=== PATIENT | female | born 1990 | race Asian ===

== ENCOUNTER 2020-02-29 08:15 | Outpatient (CLI) | payer OTHER ==
[2020-02-29 17:56] LABS: SARS-CoV-2 MS2 Positive; SARS-CoV-2 N Gene Positive; SARS-CoV-2 S Gene Positive; SARS-CoV-2 by NAA DETECTED (NotDetected); SARS-CoV-2 orf1ab Positive
== END 2020-02-29 08:16 | disposition home or self-care (01) ==
LOC: LABBT 08:15
PROVIDERS: ATTEND Advanced Practice Midwife
DX: U07.1 COVID-19 (principal)
CPT/HCPCS: 87635; U0003

== ENCOUNTER 2020-03-02 13:24 | Day surgery (SDC) | payer OTHER ==
[~2020-03-02 13:24] MED LIST: hydrALAZINE 20 MG/ML VIAL SLOW IVP PRN
[2020-03-02 13:27] VITALS: BMI 36.7
[2020-03-02] MEDS ORDERED: FLU VACC QS2020-21(6MOS UP)/PF 60 MCG/0.5 ML SYRINGE IM ONE (14:00)
--- NOTE | 2020-03-02 15:23 | ULT ---
ULTRASOUND BIOPHYSICAL PROFILE: Date: 03/02/2020 HISTORY: 29-year-old COVID-positive female in third trimester of . FINDINGS: breathin tone: 2 movement: 2 Amniotic fluid volume: 2 NATY: 16.5 cm. heart rate: 144 bpm. lie: Cephalic. Placenta: Anterior. No placenta previa. Maternal cervix: Obscured. IMPRESSION: Normal biophysical profile score of 8/8, excluding the non-stress test. jn [] POS: [facility]
== END 2020-03-02 14:25 ==
LOC: L&D/OP 13:24
PROVIDERS: ATTEND Advanced Practice Midwife
DX: O98.513 Other viral diseases complicating pregnancy, third trimester (principal); U07.1 COVID-19; Z3A.00 Weeks of gestation of pregnancy not specified
CPT/HCPCS: 36416; 76819

== ENCOUNTER 2020-03-07 13:35 | Day surgery (SDC) | payer OTHER ==
[2020-03-07 13:37] VITALS: BP 113/73; TEMP 98.9
[2020-03-07 13:40] VITALS: BMI 36.7
--- NOTE | 2020-03-07 16:08 | ULT ---
ULTRASOUND BIOPHYSICAL PROFILE: 03/07/20 HISTORY: 29-year-old COVID positive female in third trimester of with gestational diabetes. FINDINGS: breathin tone: 2 movement: 2 Amniotic fluid volume: 2 heart rate 131 bpm. lie: Vertex. Placenta: Anterior. NATY: 19 cm. IMPRESSION: Biophysical profile score of 6/8, excluding the non-stress test. Code T JN R
--- NOTE | 2020-03-07 16:21 | PDOC.EVN ---
Event Note - Event Note Event Note: 29 y.o at 38 weeks and four days with a history of GDM A2 presents to hospital for her surveillance. She affirms movement. Denies CTX, LOF, VB. She is on Metformin 1500mg PO QD for control. O: NST is reactive, baseline 150, moderate variability, No decels Selected Entries 03/07/20 13:36 Temperature 98.9 F Pulse Rate 80 Blood Pressure 113/73 [Semi-Fowlers] Respiratory 18 Rate +COVID swab follow by a Neg COVID swab BPP is 6/8, 2 off for breathing. BPP 8/10 with NST. A: 29 y.o GDM with 8/10 surveillance score P: Consulted with Dr. Noble LIVINGSTON content creation manager, who recommends follow up BPP in 24 h ours. Will plan to proceed with PCS if BPP remains 8/10 or lower
--- NOTE | 2020-03-07 17:28 | ULT ---
ULTRASOUND OBSTETRICAL LIMITED: 03/07/20 HISTORY: 29-year-old female in third trimester of with gestational diabetes. FINDINGS: number: Mayo. lie: Cephalic. Maternal cervix: Obscured. Placenta: Anterior. No placenta previa. Amniotic fluid volume: 19 cm heart rate: 131 bpm There is moderate amount of fluid in the scrotum surrounding one of the testicles. The rest of the fe herve anatomy is not evaluated in detail. There is no hydrocephalus. biometry: Head circumference (HC): 34.0 cm 39w 1d Biparietal diameter (BPD): 9.7 cm 39w 3d Abdominal circumference (AC): 34.1 cm 38w 0d Femur length (FL): 7.5 cm 38w 1d Average ultrasound age (AUA): 38w 3d Estimated date of delivery (DANIE): 03/18/20 Estimated weight (EFW): 3461 g +/- 512 g (7 lb, 10 oz +/- 18 oz) IMPRESSION: 1. Live third trimester intrauterine gestation. 2. Estimated gestational age of 38 weeks, 3 days. 3. Cephalic lie. 4. scrotal hydrocele. SCOTT Tarango POS: [facility]
[2020-03-08] MEDS ORDERED: FLU VACC QS2020-21(6MOS UP)/PF 60 MCG/0.5 ML SYRINGE IM ONE (09:00)
[2020-03-09 12:45] LABS: SARS-CoV-2 MS2 Positive; SARS-CoV-2 N Gene Negative; SARS-CoV-2 S Gene Negative; SARS-CoV-2 by NAA Not Detected (NotDetected); SARS-CoV-2 orf1ab Negative
== END 2020-03-07 17:02 | disposition home health service (06) ==
LOC: L&D/OP 13:35
PROVIDERS: ATTEND Advanced Practice Midwife
DX: O24.415 Gestational diabetes mellitus in pregnancy, controlled by oral hypoglycemic drugs (principal); Z3A.38 38 weeks gestation of pregnancy; Z79.84 Long term (current) use of oral hypoglycemic drugs; Z20.828 Contact with and (suspected) exposure to other viral communicable diseases
CPT/HCPCS: 59025; 76815; 76819; 87635; 99282; U0003

== ENCOUNTER 2020-03-08 15:04 | Day surgery (SDC) | payer OTHER ==
[2020-03-08 15:16] VITALS: BMI 36.7
[2020-03-08] MEDS ORDERED: hydrALAZINE 20 MG/ML VIAL SLOW IVP PRN (15:39)
[2020-03-08 15:57] VITALS: BP 121/75; TEMP 98.5
--- NOTE | 2020-03-08 16:45 | ULT ---
Biophysical profile: 03/08/2020 COMPARISON: 03/07/2020 HISTORY: 29-year-old female, previous biophysical profile score was 6 out of 8 FINDINGS: There is a single intrauterine gestation present demonstrating a vertex presentation. heart rate is 163 bpm. tone, breathing, movement, and amniotic fluid scored 2 out of 2 for a normal 8 out of 8 biophysical profile score. Amniotic fluid index is estimated at 18.2 cm. anatomy is not assessed on this examination. IMPRESSION: 8 out of 8 biophysical profile score.
--- NOTE | 2020-03-08 17:13 | PRG ---
DATE OF SERVICE: SUBJECTIVE: The patient is a 29-year-old G2, P1 female with an intrauterine at 38 weeks and 5 days, who is presenting today with a scheduled repeat BPP due to a BPP of 6/8 yesterday. The patient's antepartum course was complicated with A2 diabetes, managed incompletely with metformin which she takes 1500 mg a day. The patient has a plan for a primary this Friday on the condition of BPP today of 8/8. Otherwise, plan is for delivery today. The patient denies any obstetric concerns today. OBJECTIVE: VITAL SIGNS: On arrival, blood pressure is 106/70, heart rate of 86, respiratory rate of 20, saturating 99% on room air, temperature 98.2. GENERAL: She appears to be in no acute distress. She is alert, oriented, cooperative, and pleasant to interact with. Fetus has a strip showing a baseline in the 140s with moderate long-term variability, positive 15 x 15 accelerations. BPP is 8/8. ASSESSMENT AND PLAN: The patient is being discharged home with instructions to return on Friday as scheduled for her scheduled primary . She does have pending COVID test. Of note, she has a COVID test that came back positive on 02/29/2020 and then a negative test a day or two later from an outside facility, a third test is being run and should be back today. The patient has been counseled to call her office for those results. Job ID: [id number]
== END 2020-03-08 16:46 | disposition home or self-care (01) ==
LOC: L&D/OP 15:04
PROVIDERS: ATTEND Advanced Practice Midwife
DX: Z01.89 Encounter for other specified special examinations (principal); O24.415 Gestational diabetes mellitus in pregnancy, controlled by oral hypoglycemic drugs; Z3A.38 38 weeks gestation of pregnancy
CPT/HCPCS: 76819

== ENCOUNTER 2020-03-10 11:04 | Inpatient (IN) | payer MEDICAID, OTHER ==
[2020-03-10] MEDS ORDERED: Promethazine HCl 25 MG/ML VIAL IM PRN (11:28)
[2020-03-10] MEDS ORDERED: hydrALAZINE 20 MG/ML VIAL SLOW IVP PRN ×2 (11:28→15:02)
[2020-03-10] MEDS ORDERED: Ondansetron PF 4 MG/2 ML Vial IVP PRN (11:28)
[2020-03-10] MEDS ORDERED: CEFAZOLIN 2 GM in Premix Bag 1 BAG IVPB SCH (11:30)
[2020-03-10] MEDS ORDERED: Lactated Ringer's 1,000 ML IV SCH (11:30)
[2020-03-10] MEDS ORDERED: Bicitra 30 ML UDCUP PO SCH (11:30)
[2020-03-10 11:31] VITALS: BMI 36.7
[2020-03-10 11:38] LABS: #Basophils 0.1 thou/uL (0.0-0.2); #Eosinphils 0.1 thou/uL (0.0-0.7); #Monocytes 0.5 thou/uL (0.11-0.59); %Basophils 0.7 % (0.0-1.0); %Eosinophils 0.7 % (0.0-10.0); %Lymphocytes 26.1 % (21.0-51.0); %Monocytes 6.8 % (0.0-10.0); %Neutrophils 65.6 % (42.0-75.0); Hemoglobin 13.4 g/dL (12.0-16.0); Mean Corpuscular HGB CONC 34.6 g/dL (32.0-36.0); Mean Corpuscular Volume 89.5 fL (78.0-98.0); Mean Platelet Volume 8.7 fL (7.4-10.4); Platelet Count 289 thou/uL (130-400); Red Blood Cell (RBC) Count 4.34 mill/uL (4.20-5.40); White Blood Cell (WBC) Count 7.6 thou/uL (4.8-10.8)
[2020-03-10] MEDS ORDERED: Bicitra 30 ML UDCUP ONE (11:38)
[2020-03-10] MEDS ORDERED: Oxytocin 10 UNITS/ML VIAL ONE ×3 (12:02→12:47)
[2020-03-10] MEDS ORDERED: Dexamethasone 4 mg/ml Vial ONE (12:02)
[2020-03-10] MEDS ORDERED: Ondansetron PF 4 MG/2 ML Vial ONE (12:02)
[2020-03-10] MEDS ORDERED: ePHEDrine 50 MG/ML VIAL ONE (12:02)
[2020-03-10] MEDS ORDERED: Metoclopramide HCl 10 MG/2 ML VIAL ONE (12:02)
[2020-03-10 12:20] LABS: HBSAg Index 0.18 S/CO (0-0.99); Hep B Surf Ag Non-Reactive S/CO (NonReactive)
[2020-03-10 12:21] LABS: Syphilis Antibody Nonreactive (Nonreactive); Syphilis Antibody Index 0.04 S/CO (<1.00 Non-Reactive)
--- NOTE | 2020-03-10 12:32 | PDOC.LDHP ---
Labor and Delivery H&P Chief complaint: scheduled section HPI: Arrives for PCS Current gestational age (weeks): 38 Due date: 03/17/20 Dating criteria: last menstrual period (with first trimester US) Grav: 2 Para: 1 OB History Details: Vacuume assisted vaginal delivery following prolong 2nd stage 10/08/2013 Current complications: gestational diabetes (moderatly controlled on 1500mg of Metformin) Current medications: pre- vitamins, other (Metformin 1500mg) Previous surgical history: appendectomy (2009), other (Knee arthroscopy 2005) Allergies/Adverse Reactions: Allergies Allergy/AdvReac Type Severity Reaction Status Date / Time No Known Allergies Allergy Verified 03/08/20 15:17 Social history: none - Physical Exam Vital signs reviewed and normal: yes General: breathing through contractions Heart: RRR Lungs: nonlabored breathing Abdomen: gravid Extremeties: no edema FHT: category 1 - OB Labs Blood type: A RH: positive Antibody Screen: negative HIV: negative RPR: negative HEPSAg: negative 1 hour GCT: negative GBS: negative Urine drug screen: negative Rubella: immune Additional Labs: COVID positive on prescreen follow by 2 neg swabs - Assessment L&D Assessment: scheduled primary section - Plan Plan: admit to L&D, informed consent obtained, anesthesia consult for pain management
[2020-03-10] MEDS ORDERED: Meperidine HCl/PF 25 MG/ML VIAL SLOW IVP PRN (13:09)
[2020-03-10] MEDS ORDERED: Ondansetron HCl/PF 4 MG/2 ML Vial IVP PRN (13:09)
[2020-03-10] MEDS ORDERED: L&D-Morphine 4 MG/ML VIAL SLOW IVP PRN (13:09)
[2020-03-10] MEDS ORDERED: HYDROmorphone 2 MG/ML VIAL SLOW IVP PRN (13:09)
[2020-03-10] MEDS ORDERED: Ketorolac Tromethamine 30 MG/ML VIAL IVP SCH (13:15)
[2020-03-10] MEDS ORDERED: Ketorolac Tromethamine 30 MG/ML VIAL ONE (14:33)
[2020-03-10] MEDS ORDERED: Adacel (T-DAP) 0.5 ML SYRINGE IM ONE (15:02)
[2020-03-10] MEDS ORDERED: Simethicone Chewable 80 MG TAB PO PRN (15:02)
[2020-03-10] MEDS ORDERED: Lanolin Ointment 7 GM TUBE TOP PRN (15:02)
[2020-03-10] MEDS ORDERED: NS / Oxytocin 40 units/1000ml 1,000 ML IV SCH (15:02)
[2020-03-10] MEDS ORDERED: Bisacodyl 10 MG SUPP PR PRN (15:02)
[2020-03-10] MEDS ORDERED: HYDROcodone/Acetaminophen 5/325 mg Tablet PO PRN (15:02)
[2020-03-10] MEDS ORDERED: Sodium Chloride 0.9% 10 ML ONE (18:08)
--- NOTE | 2020-03-10 18:26 | OP ---
DATE OF PROCEDURE: 03/10/2020 PREOPERATIVE DIAGNOSES: 1. Difficult to control gestational A2 diabetes, on medications. 2. Previous history of prolonged second stage and operative delivery. 3. Request for primary section. POSTOPERATIVE DIAGNOSES: 1. Difficult to control gestational A2 diabetes, on medications. 2. Previous history of prolonged second stage and operative delivery. 3. Request for primary section. PROCEDURE PERFORMED: Primary low-transverse section. JUMP ROLL OPERATOR: Audrey George CNM ANESTHESIA: Spinal per Dr. Mccrary. COMPLICATIONS: None. ESTIMATED BLOOD LOSS: 500 mL. OPERATIVE FINDINGS: 1. Vigorous male infant, Apgars and weight pending at the time of dictation. 2. Low-transverse hysterotomy without extension. 3. Normal-appearing uterus, tubes, and ovaries bilaterally. 4. Uterine fundus firm after spontaneous delivery of the placenta. 5. Surgical site hemostatic. PROCEDURE IN DETAIL: The patient was taken back to the OR with IV fluids running. Once she was in the OR, spinal anesthesia was obtained and the patient was placed in dorsal supine position with a left lateral tilt. SCDs were placed on the bilateral lower extremities. 2 g of Ancef was given for prophylaxis and a Connolly catheter was placed using sterile technique. The abdomen was prepped and draped in normal fashion for section. The surgeons were gowned and gloved. The abdomen was tested, and anesthesia was found to be adequate. A Pfannenstiel skin incision was made with a scalpel. Skin incision was carried down through the subcutaneous tissue to the fascia. Once the fascia was reached, it was incised in the midline and extended superolaterally using curved Pittman scissors. Macy clamps were then placed at the superior border of the fascia, which was sharply and bluntly dissected off the rectus abdominis muscles. This was completed inferiorly as well toward the pubic symphysis. The rectus muscles were bluntly in the midline. The peritoneum was entered and stretched. The Timmy O retractor was placed into the peritoneal cavity for retraction, visualization, and protection of the wound. A bladder flap was created using Metzenbaum and a bladder flap was dissected away from the planned hysterotomy site. Hysterotomy was then made with a scalpel. It was bluntly entered and stretched using the Richmond maneuver. Amniotomy was performed with copious amounts of clear fluid. The was then delivered through the hysterotomy from vertex presentation. The nose and mouth were suctioned. The cord was doubly clamped and cut. The infant was handed off to the special care nurse in attendance. Cord blood was collected. The placenta was delivered. The uterus was exteriorized, massaged to firm, and cleared of clot and debris. The uterus was returned to the abdominal cavity. The hysterotomy was inspected with no extension noted. The hysterotomy was closed with Monocryl suture in a running locked fashion. Additional imbricating layer was placed for hemostasis. Once hemostasis of the hysterotomy was noted, the hysterotomy and paracolic gutters were irrigated and suctioned dry. The uterus was noted to be firm and no bleeding was noted from the hysterotomy. The retractor was removed from the abdominal wall. The rectus muscle and fascia were inspected with no areas of bleeding noted. The rectus fascia was reapproximated from corner to corner using PDS suture. The rectus inside the subcutaneous tissue was irrigated and dried. Any small areas of bleeding were controlled with Bovie cauterization. The subcutaneous layer was reapproximated with plain gut suture. The skin was closed with 4-0 Monocryl and a sterile dressing was applied. The patient tolerated the procedure well. The counts were correct. There were no complications. Job ID: [id number]
[2020-03-10] MEDS: Ibuprofen 800 MG TAB PO SCH ×2 (18:40→22:10)
[2020-03-10] MEDS: Docusate Calcium (SURFAK) 240 MG CAP PO SCH (22:10)
[2020-03-10] MEDS: Ferrous Sulfate 325 MG TAB PO SCH (22:12)
[2020-03-11 05:42] LABS: Hemoglobin 10.9 g/dL (12.0-16.0); Mean Corpuscular HGB CONC 34.7 g/dL (32.0-36.0); Mean Corpuscular Hemoglobin 31.1 pg (27.0-31.0); Mean Corpuscular Volume 89.6 fL (78.0-98.0); Mean Platelet Volume 8.6 fL (7.4-10.4); Platelet Count 230 thou/uL (130-400); RBC Distribution Width 14.1 % (11.5-14.5); White Blood Cell (WBC) Count 8.6 thou/uL (4.8-10.8)
[2020-03-11] MEDS: Ibuprofen 800 MG TAB PO SCH ×3 (06:08→21:51)
--- NOTE | 2020-03-11 06:29 | PDOC.PP ---
Post Progress Note Post Day #: POD2 Subjective: Resting, no c/o. Connolly out at 4A. PO intake tolerated: yes Flatus: no Ambulation: no Vital Signs (12 hours) Temp Pulse Resp BP Pulse Ox 03/11/20 04:20 98.3 F 86 18 109/61 99 03/11/20 00:18 98.8 F 92 18 109/59 L 97 03/10/20 19:37 98.1 F 87 16 118/59 L 97 Weight Weight 85.275 kg - Physical Examination General: NAD Respiratory: non-labored breathing Abdominal: no distention Skin: CS incision dry & intact Neurological: no gross focal deficits Psychiatric: normal affect Result Diagrams: 03/11/20 05:03 Additional Labs: Post Labs Hep Bs Antigen Non-Reactive S/CO (NonReactive) 03/10/20 11:26 Blood Type A POSITIVE 03/10/20 13:24 - Assessment/Plan Stable post op. Clears and advance. Early ambulation.
[2020-03-11] MEDS: Ferrous Sulfate 325 MG TAB PO SCH (08:12)
[2020-03-11] MEDS: HYDROcodone/Acetaminophen 5/325 mg Tablet PO PRN ×2 (08:56→18:40)
[2020-03-11] MEDS: Docusate Calcium (SURFAK) 240 MG CAP PO SCH ×2 (08:56→21:51)
[2020-03-11] MEDS: Prenatal Vitamin 1 TAB PO SCH (08:56)
[2020-03-11] MEDS ORDERED: FLU VACC QS2020-21(6MOS UP)/PF 60 MCG/0.5 ML SYRINGE IM ONE (09:00)
[2020-03-11 10:34] LABS: Glucose 135 mg/dL (70-105)
[2020-03-12] MEDS: Ferrous Sulfate 325 MG TAB PO SCH ×2 (00:32→09:54)
--- NOTE | 2020-03-12 05:54 | PDOC.PP ---
Post Progress Note Post Day #: 2 Subjective: Doing well PO intake tolerated: yes Flatus: yes Ambulation: yes Vital Signs (12 hours) Temp Pulse Resp BP Pulse Ox 03/12/20 04:39 98.1 F 97 18 100/62 99 03/12/20 00:15 98.3 F 103 H 18 117/65 96 03/11/20 20:40 98.0 F 88 18 99/52 L 99 Weight Weight 188 lb - Physical Examination Respiratory: non-labored breathing Abdominal: lochia, no distention, appropriately TTP Extremities: negative homans (B) Skin: CS incision dry & intact (sutured), no rash Neurological: no gross focal deficits Psychiatric: A&Ox3, normal affect Result Diagrams: 03/11/20 05:03 03/11/20 10:02 Additional Labs: Post Labs Hep Bs Antigen Non-Reactive S/CO (NonReactive) 03/10/20 11:26 Blood Type A POSITIVE 03/10/20 13:24 - Assessment/Plan S/P primary requested CS doing well. Incision C/D/I. Desires continues OBS today which I prefer as primary CS. Goal is home tomorrow as POD3 routine.
[2020-03-12] MEDS: Ibuprofen 800 MG TAB PO SCH ×3 (06:37→22:32)
[2020-03-12] MEDS: Docusate Calcium (SURFAK) 240 MG CAP PO SCH ×2 (09:54→22:32)
[2020-03-12] MEDS: Prenatal Vitamin 1 TAB PO SCH (09:54)
[2020-03-12] MEDS: HYDROcodone/Acetaminophen 5/325 mg Tablet PO PRN ×2 (13:42→22:35)
[2020-03-13] MEDS: Ferrous Sulfate 325 MG TAB PO SCH ×2 (01:45→07:51)
[2020-03-13] MEDS: Ibuprofen 800 MG TAB PO SCH ×2 (05:28→14:08)
[2020-03-13 07:30] VITALS: BP 130/66; TEMP 98.1
[2020-03-13] MEDS: Prenatal Vitamin 1 TAB PO SCH (09:11)
[2020-03-13] MEDS: Docusate Calcium (SURFAK) 240 MG CAP PO SCH (09:11)
--- NOTE | 2020-03-13 12:21 | PDOC.PP ---
Post Progress Note Post Day #: 3 Subjective: Pt is doing well. Pain is much better. PO intake tolerated: yes Flatus: yes Ambulation: yes Vital Signs (12 hours) Temp Pulse Resp BP Pulse Ox 03/13/20 07:45 98 03/13/20 07:29 98.1 F 81 20 130/66 98 Weight Weight 188 lb - Physical Examination General: NAD Respiratory: non-labored breathing Abdominal: lochia, no distention Skin: CS incision dry & intact Neurological: no gross focal deficits Psychiatric: A&Ox3, normal affect Result Diagrams: 03/11/20 05:03 03/11/20 10:02 Additional Labs: Post Labs Hep Bs Antigen Non-Reactive S/CO (NonReactive) 03/10/20 11:26 Blood Type A POSITIVE 03/10/20 13:24 (1) Term of male Code(s): Z37.0 - SINGLE LIVE Status: Acute (2) delivery delivered Code(s): O82 - ENCOUNTER FOR DELIVERY WITHOUT INDICATION Status: Acute - Assessment/Plan A: G2 now p2 s/p PCS for uncontrolled GDM. P: discharge home. pain medications sent. 2 week incision check 6 week pp visit
[2020-03-13] MEDS: HYDROcodone/Acetaminophen 5/325 mg Tablet PO PRN (15:19)
== END 2020-03-13 16:25 | disposition home or self-care (01) | DRG 788 ==
LOC: L&D 11:04 → 3SE 15:44 → 3SW 03-11 18:31
PROVIDERS: ADMIT Obstetrics & Gynecology; ATTEND Obstetrics & Gynecology
PROC: 10D00Z1 Extraction of Products of Conception, Low, Open Approach (ICD-10-PCS; principal; 2020-03-10)
DX: O24.425 Gestational diabetes mellitus in childbirth, controlled by oral hypoglycemic drugs (principal); Z3A.38 38 weeks gestation of pregnancy; Z37.0 Single live birth; Z20.828 Contact with and (suspected) exposure to other viral communicable diseases; Z90.49 Acquired absence of other specified parts of digestive tract; Z86.19 Personal history of other infectious and parasitic diseases
CPT/HCPCS: 36415; 36416; 51702; 82947; 85027; 86780; 86850; 86900; 86901; 87340; J0690; J1100; J1885; J2270; J2405; J2765; J3490

== ENCOUNTER 2020-11-02 07:27 | Outpatient (CLI) | payer OTHER | END 2020-11-02 07:28 | disposition home or self-care (01) | LOC: BICULT 07:27 | PROVIDERS: ATTEND Internal Medicine Gastroenterology | DX: R10.9 Unspecified abdominal pain (principal); K76.0 Fatty (change of) liver, not elsewhere classified; K80.20 Calculus of gallbladder without cholecystitis without obstruction | CPT/HCPCS: 93975 ==